=== PATIENT | female | born 1960 | race Caucasian/White ===

== ENCOUNTER 2020-05-06 15:26 | Outpatient (CLI) | payer BC, SELFPAY ==
--- NOTE | ~2020-05-06 | MM_ITS ---
EXAMINATION: MM scrn ancelmo implant BI w cristina HISTORY: Screening mammogram TECHNIQUE: Craniocaudal and mediolateral oblique 3-D tomosynthesis images with implant displacement a nd synthetic 2-D images were generated. Craniocaudal and mediolateral oblique views of the breasts wi thout implant displacement were obtained using full field digital mammography. CAD analysis was submi tted and interpreted. COMPARISON: Comparison to multiple prior studies sequentially, with oldest reviewed study dated 08/27. BREAST PARENCHYMAL COMPOSITION: There are scattered areas of fibroglandular density. FINDINGS: There is no evidence of suspicious mass, calcification, or architectural distortion to sugg est malignancy in either breast. There has been no suspicious interval change. IMPRESSION: 1. No mammographic evidence of malignancy. 2. Recommend routine screening mammography in one year. BI-RADS Category 1: Negative Reviewed, dictated and finalized at location A.
== END 2020-05-06 15:27 | disposition home or self-care (01) ==
LOC: ANHIMG 15:28
PROVIDERS: PCP Emergency Medicine; Visit Provider Obstetrics & Gynecology
DX: Z12.31 Encounter for screening mammogram for malignant neoplasm of breast (principal)
CPT/HCPCS: 77063; 77067

== ENCOUNTER 2021-03-13 08:28 | Outpatient (CLI) | payer BC, SELFPAY ==
--- NOTE | ~2021-03-13 | XR_ITS ---
EXAMINATION: XR lumbar spine 2-3V EXAM DATE: 03/13/2021 08:42 INDICATION: Right-sided low back pain. No known recent injury. TECHNIQUE: Lumber spine frontal, lateral, lateral L5-S1 projections for interpretation. There is no prior study for comparison. FINDINGS: Evidence of minimal lumbar disc disease. There is moderate facet arthropathy at L4-5 and L 5-S1, mild to moderate at the levels above. Does not appear to be causing any significant neural fora joaquín stenosis. Sacrum, sacroiliac joints, sacral arcuate lines are intact. Paraspinal soft tissue is unremarkable. IMPRESSION: Moderate lower lumbar facet arthropathy. Reviewed, dictated and finalized at location B.
== END 2021-03-13 08:29 | disposition home or self-care (01) ==
LOC: ANHIMG 08:31
PROVIDERS: PCP Emergency Medicine; Visit Provider Emergency Medicine
DX: M54.9 Dorsalgia, unspecified (principal); G89.29 Other chronic pain
CPT/HCPCS: 72100

== ENCOUNTER 2021-05-14 07:46 | Outpatient (CLI) | payer BC, SELFPAY ==
--- NOTE | ~2021-05-14 | MM_ITS ---
EXAMINATION: MM scrn ancelmo implant BI w cristina HISTORY: Screening mammogram TECHNIQUE: Craniocaudal and mediolateral oblique 3-D tomosynthesis images with implant displacement a nd synthetic 2-D images were generated. Craniocaudal and mediolateral oblique views of the breasts wi thout implant displacement were obtained using full field digital mammography. CAD analysis was submi tted and interpreted. COMPARISON: 05/06/2020, 03/21/2019, 04/19/2017 BREAST PARENCHYMAL COMPOSITION: There are scattered areas of fibroglandular density. FINDINGS: There is no evidence of suspicious mass, calcification, or architectural distortion to sugg est malignancy in either breast. There has been no suspicious interval change. IMPRESSION: 1. No mammographic evidence of malignancy. 2. Recommend routine screening mammography in one year. BI-RADS Category 1: Negative Reviewed, dictated and finalized at location A.
== END 2021-05-14 07:47 | disposition home or self-care (01) ==
PROVIDERS: PCP Emergency Medicine; Visit Provider Obstetrics & Gynecology
DX: Z12.31 Encounter for screening mammogram for malignant neoplasm of breast (principal)
CPT/HCPCS: 77063; 77067

== ENCOUNTER 2022-07-15 10:12 | Outpatient (CLI) | payer BC, SELFPAY ==
--- NOTE | ~2022-07-15 | XR_ITS ---
EXAMINATION: XR foot LT 2V INDICATION: Left foot pain TECHNIQUE: Two views of the left foot are obtained. COMPARISON: None available FINDINGS: Bone alignment is normal. There is no fracture. 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 There is periosteal reaction of the third and fourth metatarsals as well as the second through fourth proximal phalanges. A plantar calcaneal enthesophyte is noted. IMPRESSION: 1. Periosteal reaction of the third and fourth metatarsals and the second through fourth proximal pha langes, likely reflecting prior fractures or chronic venous stasis. Location would be atypical for hy pertrophic osteoarthropathy and is considered less likely. Reviewed, dictated and finalized at location B. IMPRESSION: 1. Periosteal reaction of the third and fourth metatarsals and the second throu gh fourth proximal phalanges, likely reflecting prior fractures or chronic veno us stasis. Location would be atypical for hypertrophic osteoarthropathy and is considered less likely.
== END 2022-07-15 10:13 | disposition home or self-care (01) ==
LOC: ANHIMG 10:14
PROVIDERS: PCP Emergency Medicine; Visit Provider Emergency Medicine
DX: M79.672 Pain in left foot (principal)
CPT/HCPCS: 73620

== ENCOUNTER 2022-09-13 15:29 | Outpatient (CLI) | payer BC, SELFPAY ==
--- NOTE | ~2022-09-13 | MM_ITS ---
EXAMINATION: MM scrn ancelmo implant BI w cristina HISTORY: Screening mammogram TECHNIQUE: Craniocaudal and mediolateral oblique 3-D tomosynthesis images with implant displacement a nd synthetic 2-D images were generated. Craniocaudal and mediolateral oblique views of the breasts wi thout implant displacement were obtained using full field digital mammography. CAD analysis was submi tted and interpreted. COMPARISON: Comparison to multiple prior studies sequentially, with oldest reviewed study dated 11/2014. BREAST PARENCHYMAL COMPOSITION: There are scattered areas of fibroglandular density. FINDINGS: Stable right breast masses. There is no evidence of suspicious mass, calcification, or arch itectural distortion to suggest malignancy in either breast. There has been no suspicious interval ch sidney. IMPRESSION: 1. No mammographic evidence of malignancy. 2. Recommend routine screening mammography in one year. BI-RADS Category 2: Benign finding(s). Reviewed, dictated and finalized at location A. [employer]ER
== END 2022-09-13 15:30 | disposition home or self-care (01) ==
LOC: ANHIMG 15:30
PROVIDERS: PCP Emergency Medicine; Visit Provider Emergency Medicine
DX: Z12.31 Encounter for screening mammogram for malignant neoplasm of breast (principal)
CPT/HCPCS: 77063; 77067

== ENCOUNTER 2024-02-10 14:25 | Outpatient (CLI) | payer OTHER, SELFPAY ==
--- NOTE | ~2024-02-10 | MM_ITS ---
EXAMINATION: MM scrn ancelmo implant BI w cristina HISTORY: Screening mammogram TECHNIQUE: Craniocaudal and mediolateral oblique 3-D tomosynthesis images with implant displacement a nd synthetic 2-D images were generated. Craniocaudal and mediolateral oblique views of the breasts wi thout implant displacement were obtained using full field digital mammography. CAD analysis was submi tted and interpreted. COMPARISON: 09/13/2022, 05/14/2021, 05/06/2020 bilateral implants screening mammogram examinations BREAST PARENCHYMAL COMPOSITION: There are scattered areas of fibroglandular density. FINDINGS: Status post bilateral augmentation mammoplasty. There is a biopsy marker on the right; history of prior benign right breast biopsy. Stable right breast masses since 05/06/2020. There is no evidence of suspicious mass, calcification, or architectural distortion to suggest malig jennyfer in either breast. There has been no suspicious interval change. IMPRESSION: 1. No mammographic evidence of malignancy. 2. Recommend routine screening mammography in one year. BI-RADS Category 2: Benign finding(s). Reviewed, dictated and finalized at location B.
== END 2024-02-10 14:26 | disposition home or self-care (01) ==
PROVIDERS: PCP Emergency Medicine; Visit Provider Obstetrics & Gynecology
DX: Z12.31 Encounter for screening mammogram for malignant neoplasm of breast (principal)
CPT/HCPCS: 77063; 77067

== ENCOUNTER 2024-08-31 09:56 | Outpatient (CLI) | payer OTHER, SELFPAY | END 2024-08-31 09:57 | disposition home or self-care (01) | LOC: ANHAUDIO 09:57 | PROVIDERS: PCP Emergency Medicine; Visit Provider Otolaryngology | DX: H93.19 Tinnitus, unspecified ear (principal); H90.3 Sensorineural hearing loss, bilateral; G43.909 Migraine, unspecified, not intractable, without status migrainosus; J32.0 Chronic maxillary sinusitis | CPT/HCPCS: 92557; 92567 ==

== ENCOUNTER 2024-08-31 13:25 | Outpatient (CLI) | payer OTHER, SELFPAY ==
--- NOTE | ~2024-08-31 | CT_ITS ---
EXAMINATION: CT sinus wo con DATE: 08/31/2024 13:42 INDICATION: Chronic maxillary sinusitis. Migraine headaches. TECHNIQUE: Computed tomography (CT) of the paranasal sinuses was performed without contrast. Iterativ e reconstruction technique was employed. Exam dose: 380.38 mGy-cm total exam DLP. COMPARISON: None FINDINGS: There is leftward deviation of the nasal septum. Intralamellar cell of both middle nasal turbinates. Slim bullosa of the right middle nasal turbinat e. Moderately prominent swelling of the nasal turbinates is noted bilaterally. The ostiomeatal units are patent. The paranasal sinuses and mastoid air cells are normally developed and aerated. IMPRESSION: Leftward deviation of nasal septum Moderately prominent swelling of the nasal turbinates Intralamellar cell of both middle nasal turbinates slim bullosa of right middle nasal turbinate Patent paranasal sinuses and ostiomeatal units Reviewed, dictated and finalized at Location A. Reviewed, dictated and finalized at location A. [employer] ECONOMIST IMPRESSION: Leftward deviation of nasal septum Moderately prominent swelling of the nasal turbinates Intralamellar cell of both middle nasal turbinates slim bullosa of right midd le nasal turbinate Patent paranasal sinuses and ostiomeatal units
== END 2024-08-31 13:26 | disposition home or self-care (01) ==
LOC: GOSHIMG 13:26
PROVIDERS: PCP Emergency Medicine; Visit Provider Otolaryngology
DX: G43.909 Migraine, unspecified, not intractable, without status migrainosus (principal); H90.3 Sensorineural hearing loss, bilateral; H93.19 Tinnitus, unspecified ear; J32.0 Chronic maxillary sinusitis; J34.2 Deviated nasal septum
CPT/HCPCS: 70486